=== PATIENT | male | born 1950 | race Caucasian/White ===

== ENCOUNTER → 2016-08-07 14:15 | Outpatient (CLI) | payer BC ==
[2016-03-25 09:43] VITALS: BMI 25.8
[~2016-08-07 14:15] MED LIST: LAMISIL250 MG PO; PERCOCET 10/3251 TA1 PO; PLAVIX75 MG PO; SYNTHROID75 MCG PO; ZOFRAN ODT4 MG/UDTAB PO
== END | disposition home or self-care (01) ==
LOC: D.MRI 14:15
DX: M25.551 Pain in right hip (principal)

== ENCOUNTER → 2016-09-02 07:32 | Outpatient (CLI) | payer BC ==
[2016-03-25 09:43] VITALS: BMI 25.8
== END | disposition home or self-care (01) ==
LOC: D.RAD 08-31 13:00 → D.OPS 09-01 08:00
DX: M16.11 Unilateral primary osteoarthritis, right hip (principal); M87.051 Idiopathic aseptic necrosis of right femur

== ENCOUNTER → 2016-10-12 10:31 | Outpatient (CLI) | payer BC ==
[2016-03-25 09:43] VITALS: BMI 25.8
== END | disposition home or self-care (01) ==
LOC: D.RAD 10:31
DX: M54.40 Lumbago with sciatica, unspecified side (principal)

== ENCOUNTER → 2017-05-12 12:42 | Outpatient (CLI) | payer MEDICARE, OTHER ==
[2016-03-25 09:43] VITALS: BMI 25.8
== END | disposition home or self-care (01) ==
LOC: D.US 11:00
DX: I71.4 Abdominal aortic aneurysm, without rupture (principal)

== ENCOUNTER → 2017-05-13 15:47 | Outpatient (CLI) | payer MEDICARE, OTHER ==
[2016-03-25 09:43] VITALS: BMI 25.8
== END | disposition home or self-care (01) ==
LOC: D.CT 15:47
DX: I71.4 Abdominal aortic aneurysm, without rupture (principal)

== ENCOUNTER → 2017-10-12 08:06 | Outpatient (CLI) | payer MEDICARE, OTHER ==
[2016-03-25 09:43] VITALS: BMI 25.8
== END | disposition home or self-care (01) ==
LOC: D.RT 08:00
DX: R06.09 Other forms of dyspnea (principal); R22.41 Localized swelling, mass and lump, right lower limb

== ENCOUNTER → 2018-05-16 12:35 | Outpatient (CLI) | payer MEDICARE, OTHER ==
[2016-03-25 09:43] VITALS: BMI 25.8
== END | disposition home or self-care (01) ==
LOC: D.US 12:35
DX: M79.89 Other specified soft tissue disorders (principal)